=== PATIENT | female | born 1995 | race Caucasian/White ===

== ENCOUNTER 2020-08-01 18:40 | Emergency (ER) | payer BC ==
[~2020-08-01] VITALS: Ht 152.4 cm; Wt 72.6 kg
[2020-08-01 19:34] LABS: BASOPHIL % 0.3 % (0-2); PLATELET COUNT 388 x10^3mcL (130-400); RED CELL DISTRIBUTION WIDTH 13.3 % (11.5-14.5)
[2020-08-01 20:47] LABS: UA SPECIFIC GRAVITY >=1.030 (1.005-1.035); microscopic required? YES; urine erythrocyte 2+ (NEGATIVE)
[2020-08-01 21:44] VITALS: BP 121/66
== END 2020-08-01 21:44 | disposition home or self-care (01) ==
LOC: ED 18:40
PROVIDERS: Emergency Medicine
DX: O20.0 Threatened abortion (principal); Z90.49 Acquired absence of other specified parts of digestive tract